=== PATIENT | male | born 1965 | race Caucasian/White ===

== ENCOUNTER 2025-01-16 06:13 | Observation (INO) | payer OTHER, SELFPAY ==
[2025-01-15 23:26] VITALS: BMI 29.2
[2025-01-15 23:27] VITALS: BP 129/78
[2025-01-15 23:40] LABS: % Basophils 0.6 % (0-2); % Eosinophils 3.5 % (0-6); % Immature Granulocytes 0.6 % (0-0.5); % Lymphocytes 27.1 % (20.5-51.1); % Monocytes 6.8 % (1.7-9.3); % Neutrophils 61.4 % (42.2-75.2); Absolute Basophils 0.1 10^3/uL (0-0.2); Absolute Eosinophils 0.4 10^3/uL (0-0.7); Absolute Immature Granulocytes 0.1 10^3/uL (0-0.05); Absolute Monocytes 0.8 10^3/uL (0.1-0.6); Absolute Neutrophils 6.7 10^3/uL (1.4-6.5); Hematocrit 39.5 % (39.0-52.0); Hemoglobin 13.8 g/dL (13.0-18.0); Mean Corp Hgb Conc. 34.9 g/dL (33.0-37.0); Mean Corpuscular Hgb 29.7 pg (27.0-31.0); Mean Corpuscular Volume 85.1 fL (80.0-94.0); Mean Platelet Volume 9.8 fL (7.4-10.4); Nucleated Red Blood Cells % 0 % (-); Platelet Count 212 10^3/uL (130-400); Red Blood Cell Count 4.64 10^6/uL (4.70-6.10); Red Cell Dist. Width 12.2 % (11.5-14.5)
[2025-01-16] VITALS (12 sets, daily range): BP systolic 100–143; BP diastolic 64–92; PULSE 71–85; BMI 28.0
[2025-01-16 00:02] LABS: ALT (SGPT) 28 U/L (0-50); AST (SGOT) 27 U/L (17-59); Albumin 4.3 g/dl (3.5-5.0); Alkaline Phosphatase 68 U/L (38-126); Blood Urea Nitrogen 22 mg/dl (9-20); Calcium 9.1 mg/dl (8.4-10.2); Carbon Dioxide 22 mmol/L (22-30); Chloride 107 mmol/L (98-107); Estimated Creatinine Clearance 93 ml/min; Glucose 140 mg/dl (70-99); Potassium 3.7 mmol/L (3.5-5.1); Sodium 139 mmol/L (135-145); Total Bilirubin 0.5 mg/dl (0.2-1.3); Total Protein 6.5 g/dl (6.3-8.2); eGFR > 60.00
--- NOTE | 2025-01-16 00:52 | ED.GENMED ---
History of Present Illness
General
Chief Complaint: Dizziness
Source: patient
Exam Limitations: none
Time Seen by Provider: 01/16/25 00:50
Nursing documentation reviewed up to this point in time: agreed with
History of Present Illness
History of Present Illness:
59-year-old male with a past medical history of hypertension presents emergency department today with concerns of sudden onset of dizziness and diaphoresis. Patient reports that this started when he was driving his car on a local road. Patient
reports that he had to anchor tack puller on the road because of the severity of the symptoms. Patient reports that he had a lot of blurry vision at the time and felt like the room was spinning. This happened to him once before in the past but only lasted
a few minutes. Patient pulled over and called his daughter for assistance. He did have 2 episodes of vomiting at home and currently notes persistent nausea. He denies headaches or neck pain. He denies chest pain or difficulty breathing. He
reports that it got so severe that he is unable to walk or move because of the symptoms. He denies double vision. He denies any dysarthria, dysphagia. Daughter denies any confusion or changes in mentation. Patient denies any paresthesias in his
upper or lower extremities. He does not smoke.
Review of Systems
Review of Systems
All Other Systems: ROS reviewed and negative except as documented in HPI and ROS
Phy Exam
Physical Exam
Physical Exam:
General: Patient is non-toxic appearing
Skin: Warm and dry, no rashes or lesions
Head: Normocephalic, atraumatic
Eyes: Sclera non-icteric. EOMs intact. Left beating horizontal nystagmus with lateral gauze.
Cardiac: Regular rate and rhythm, no murmurs
Peripheral Vascular: No lower extremity swelling or edema
Pulm: Normal respiratory effort , no wheezes, rales, or rhonchi
Abdomen: No abdominal tenderness to palpation
Neuro: CN II-XII intact, 5/5 strength in bilateral upper and lower extremities. Sensation intact.
Unable to sit up or ambulate due to degree of dizziness.
Psychiatric: Appropriate mood and affect.
Course
Orders/Labs/Results
Orders:
Orders
01/15/25 23:23
Electrocardiogram (*1) Urgent
Reason for Study: Vertigo / Dizzy
EKG- Treatment ONCE
01/15/25 23:31
CMP [Comprehensive Metabolic Panel] Urgent
Complete Blood Count/With Diff Urgent
01/16/25 01:05
0.9% Sodium Chloride 500 ml [Nss] 500 ml IV BOLUS
Diphenhydramine [Benadryl] 12.5 mg IV NOW STA
Meclizine [Antivert] 25 mg PO NOW STA
Ondansetron Injectable [Zofran] 4 mg IV NOW STA
01/16/25 01:06
CT Head W/o Iv Contrast Urgent
Comment:
Reason For Exam: dizziness
01/16/25 05:00
Flush (0.9% Sodium Chloride) [Flush (Nss)] See Dose Instructions IV PER PROTOCOL
01/16/25 05:55
Admit/Transfer Patient As Directed
Co-Sign Provider:
Level of Care: Observation services
Assign to:: Telemetry
Physician / Group: Uvaldo
Diagnosis: Dizziness / Vertigo
Reason for Telemetry: CVA/TIA
Date to Stop Telemetry: 01/19/25
Time to Stop Telemetry: 11:00
Code Status As Directed
Resuscitation Status: Full Code
PRN Pain Medication Management As Directed
May give lesser potent ordered pain med per pt: Yes
preference::
Protocol:: Medication orders for pain may be administered in a
manner that supports deferring to patient preference
when the pt is:
- Requesting an ordered lesser potent pain medication.
Least to most potent pain medications are defined
as: acetaminophen < NSAID < tramadol < opioids
(morphine, oxycodone, hydromorphone).
- Requesting a lesser dose of the same medication IF
ORDERED.
- Requesting a less intrusive route of administration
if both routes are prescribed by the provider (PO <
IV).
01/19/25 11:00
DC Protocol for Telemetry ONCE
Abnormal Lab Results
01/15/25
23:31
WBC 11.0 H 10^3/uL
(4.8-10.8)
RBC 4.64 L 10^6/uL
(4.70-6.10)
Abs Immat Gran (auto) 0.1 H 10^3/uL
(0-0.05)
Absolute Neuts (auto) 6.7 H 10^3/uL
(1.4-6.5)
Absolute Monos (auto) 0.8 H 10^3/uL
(0.1-0.6)
Immature Gran % 0.6 H %
(0-0.5)
BUN 22 H mg/dl
(9-20)
Glucose 140 H mg/dl
(70-99)
01/15/25 23:31
01/15/25 23:31
Vital Signs
Initial and Last Documented VS:
Initial Vital Signs
Temp Pulse Resp BP Pulse Ox
97.8 F 70 18 129/78 96
01/15/25 23:27 01/15/25 23:27 01/15/25 23:27 01/15/25 23:27 01/15/25 23:27
Last Documented Vital Signs
Temp Pulse Resp BP Pulse Ox
97.8 F 76 18 120/78 95
01/15/25 23:27 01/16/25 04:45 01/15/25 23:27 01/16/25 02:00 01/16/25 04:45
MDM/Problems Addressed
Differential Diagnosis Includes:
ddx include BPPV, vestibular neuritis, posterior CVA, dysrhythmia, electrolyte derangement, symptomatic anemia, brain tumor
MDM/Problems Addressed:
59-year-old male with a past medical history of hypertension presents emergency department today with concerns of sudden onset of dizziness and diaphoresis. This started while driving. He called his daughter for further assistance. They called
EMS. Patient has not been able to walk since his symptoms started. He is barely able to tolerate position changes. On physical exam he appears uncomfortable but is nontoxic. He does have left beating horizontal nystag with lateral gaze.mus his
sensations intact. He has 5 out of 5 strength. Initially unable to move at all due to his symptoms, he was given meclizine, Benadryl, and Zofran and IV fluids. After this, he does note slight improvement with his symptoms however when I got him
up to walk, he was unable to walk without leaning to his right side and nearly falling and unable to walk without assistance. Will admit for further workup and symptomatic management
*Pulse Oximetry
Patient hypoxic: no
*Critical Care Note
Total Time (30-74mins, 75-104mins- exclusive of procedures): Not Applicable
Update Note
Update Note:
3:10 am--update, on reassessment, patient notes a mild improvement of his symptoms, he is now able to sit up and stand up however with ambulation, he is unable to ambulate unassisted has right leaning gait and nearly falls with ambulation
ED Attending Note
-
Portions of this chart may have been created with voice recognition software.� Occasional wrong word or��sound alike� substitutions may have occurred due to the inherent limitations of voice recognition software.
Discharge Plan
Departure
Patient Disposition: Admit
Date of Disposition: 01/16/25
Time of Disposition: 04:04
Admit to: Med/Surg
Presentation/result/management discussed w/ accepting MD/DO: Hospitalist
Patient with high blood pressure during this ER visit?: No
Condition: Fair
Discharge Problem:
Dizziness, Gait disturbance
Interventions
Interventions:
*Risk Screen - Suicide Last Done: 01/15/25 23:33
*General Assessment Last Done: 01/15/25 23:33
*Neglect/Abuse Screening Last Done: 01/15/25 23:33
*ED- Fall Risk Assessment Last Done: 01/15/25 23:33
*ED COVID-19 Vaccine History Last Done: 01/15/25 23:33
ED- Neurological Assessment Last Done: 01/15/25 23:38
ED- Cardiac Assessment Last Done: 01/15/25 23:38
ED Swallowing Screen Last Done: 01/16/25 01:51
[2025-01-16] MEDS: NSS 500 IV (01:40)
[2025-01-16] MEDS: ANTIVERT 25 MG PO ×3 (01:42→19:22)
[2025-01-16] MEDS: BENADRYL 12.5 MG IV (01:44)
[2025-01-16] MEDS: ZOFRAN 4 MG IV (01:44)
--- NOTE | 2025-01-16 06:31 | HPS.HSE ---
Family Physician
-
Family Physician: Geetha Bauer
Chief Complaint
-
Dizziness
History of Present Illness
Patient is a 59y M with PMH significant for hypertension and diverticular disease who presents to ED complaining of dizziness / vision changes. Patient states that he was feeling well for most of the day. He was driving home this evening when
he began to feel that the cars around him were too close. He then noted that everything appeared to be very close to him. He was able to lime puller safely and stop his vehicle. He noted lightheaded / dizzy sensation. He had nausea with dry
heaves. He called his daughter and notes that he had difficulty seeing / operating his phone. When she arrived she called 911 and patient was brought to the ED for evaluation.
Patient received meclizine here in the ED and notes that his symptoms have improved. He does not yet appear at baseline but feels much better than arrival.
He denies any prior history of similar symptoms.
Medical History
Past Medical History
Past Medical History: Reports Other
Additional Past Medical History:
Hypertension
Diverticular Disease
Past Surgical History: Reports Other
Additional Past Surgical History:
Partial Colectomy / Colostomy
Colostomy Reversal
Hernia Repair
Social History
Tobacco: Former Smoker (Quit smoking at 30yo. Approx 10 pack years total use.)
Alcohol: Daily (1-2 drinks daily.)
Drug: None
Family History
Family History: Adopted
Allergies / Home Medications
Allergies reflects when Allergies were last updated in [employer].
Home Medications with original date entered in [employer]
Allergy/Medication List:
Allergies
Allergy/AdvReac Type Severity Reaction Status Date / Time
No Known Allergies Allergy Verified 01/15/25 23:25
Home Medications
lisinopril 10 mg-hydrochlorothiazide 12.5 mg tablet 1 tab PO DAILY 01/16/25
Review of Systems
-
History Source: Patient
A 12 point ROS was completed and negative except as noted: Yes
Constitutional: Denies Fever or Chills
Respiratory: Denies Cough or Trouble Breathing
Cardiac: Denies Chest Pain or Palpitations
Abdomen/GI: Reports Nausea; Denies Abdominal Pain, Vomiting or Diarrhea
: Denies Dysuria or Frequency
Musculoskeletal: Denies Joint Pain or Edema
Neurological: Reports Dizzy; Denies Headache, Weakness or Numbness
Psych: Denies Depression or Anxiety
Physical Exam
Vital Signs
Vital Signs
Temp Pulse Resp BP Pulse Ox
97.8 F 76 18 120/78 95
01/15/25 23:27 01/16/25 04:45 01/15/25 23:27 01/16/25 02:00 01/16/25 04:45
Physical Exam
General: Other (59y M in no acute distress.)
HEENT: Moist mucous membranes, PERRLA and Other (Pos L beating nystagmus.)
Respiratory: Clear; No Wheezes, Rales or Rhonchi
Cardiac: S1/S2 and Regular Rhythm; No Murmur
GI: Soft, Non Tender, Non Distended and Normal Bowel Sounds
Musculoskeletal: No Clubbing, No Cyanosis and No Edema
Neuro: AO x 3 and Nonfocal/grossly intact
Laboratory Results
-
01/15/25 23:31
01/15/25 23:31
Laboratory Results
Total Bilirubin 0.5 mg/dl (0.2-1.3) 01/15/25 23:31
AST 27 U/L (17-59) 01/15/25 23:31
ALT 28 U/L (0-50) 01/15/25 23:31
Alkaline Phosphatase 68 U/L (38-126) 01/15/25 23:31
Impression/Plan
-
A/P: Patient is a 59y M with PMH significant for hypertension who presents to ED complaining of dizziness and vision changes.
Vertigo / Dizziness
- Observe overnight for further evaluation and treatment.
- ? BPPV v CVA.
- Continue supportive care, IVFs, Meclizine PRN, etc.
- PT / Vestibular therapy eval.
- MRI brain in AM.
- Follow for any new / recurrent symptoms.
Benign Hypertension
- Stable. Continue current medication and adjust if needed.
DVT Prophylaxis: SCDs
Code Status: Full
[2025-01-16] MEDS: NSS 1000 IV ×2 (10:14→21:47)
[2025-01-16] MEDS: ZESTRIL 10 MG PO (10:27)
[2025-01-16] MEDS: ORETIC 12.5 MG PO (10:27)
--- NOTE | 2025-01-16 11:10 | W.PN.HOSP.TC ---
Today's Communication/Plan
-
MRI of the brain
Assessment / Plan
Assessment / Plan
Physical exam:
General: Well Developed, Well Nourished and No Apparent Distress
HEENT: Normocephalic, Atraumatic and Moist Mucous Membranes
Respiratory: Clear to Auscultation; Negative Wheezes, Rales or Rhonchi
Cardiac: Regular Rhythm and S1/S2
GI: Soft, Nontender and Nondistended
Musculoskeletal: No Clubbing, No Cyanosis and No Edema
Neuro: Awake, Alert and Oriented, no neurological deficits today. Horizontal nystagmus present
Psych: Calm
A/P:
Vertigo / Dizziness
- Observe overnight for further evaluation and treatment.
- ? BPPV v CVA.
- Continue supportive care, IVFs, Meclizine PRN, etc.
- PT / Vestibular therapy eval.
- MRI brain pending
- Follow for any new / recurrent symptoms.
Benign Hypertension
- Stable. Continue current medication and adjust if needed.
DVT Prophylaxis: SCDs
Code Status: Full
Anticipated Discharge: Within 24 hours
Subjective/Interval History
-
Date of Service: January 16, 2025
Patient feels much better this morning. No focal weakness or slurred speech.
Objective Data
-
Labs:
Laboratory Results
01/15/25
23:31
WBC 11.0 H
Hgb 13.8
Hct 39.5
Plt Count 212
Sodium 139
Potassium 3.7
Chloride 107
Carbon Dioxide 22
BUN 22 H
Creatinine 0.8
Glucose 140 H
Calcium 9.1
Total Bilirubin 0.5
AST 27
ALT 28
Alkaline Phosphatase 68
Vital Signs:
Vital Signs
Temp Pulse Resp BP Pulse Ox
97.6 F 74 16 118/77 97
01/16/25 09:30 01/16/25 09:30 01/16/25 09:30 01/16/25 09:30 01/16/25 09:30
[2025-01-16] MEDS: TYLENOL 650 MG PO (17:02)
[2025-01-17 03:00] VITALS: BP 103/60
[2025-01-17 06:00] VITALS: BMI 27.8
[2025-01-17 07:12] VITALS: BP 115/72
[2025-01-17 07:20] VITALS: BP 115/72; BP 121/78; BP 127/80; PULSE 61; PULSE 74; PULSE 76
--- NOTE | 2025-01-17 07:21 | W.PN.HOSP.TC ---
Today's Communication/Plan
-
Brain MRI today. Discharge planning
Assessment / Plan
Assessment / Plan
Physical exam:
General: Well Developed, Well Nourished and No Apparent Distress
HEENT: Normocephalic, Atraumatic and Moist Mucous Membranes
Respiratory: Clear to Auscultation; Negative Wheezes, Rales or Rhonchi
Cardiac: Regular Rhythm and S1/S2
GI: Soft, Nontender and Nondistended
Musculoskeletal: No Clubbing, No Cyanosis and No Edema
Neuro: Awake, Alert and Oriented, no neurological deficits today. Horizontal nystagmus present
Psych: Calm
A/P:
Vertigo / Dizziness
- Observe overnight for further evaluation and treatment.
- ? BPPV v CVA.
- Continue supportive care, IVFs, Meclizine PRN, etc.
- PT / Vestibular therapy eval.
- MRI brain pending
- Follow for any new / recurrent symptoms.
Benign Hypertension
- Stable. Continue current medication and adjust if needed.
DVT Prophylaxis: SCDs
Code Status: Full
Anticipated Discharge: Today
Subjective/Interval History
-
Date of Service: January 17, 2025
Patient feels better overall. Still some dizziness but much less.
Objective Data
-
Labs:
Laboratory Results
01/17/25
06:39
WBC Pending
Hgb Pending
Hct Pending
Plt Count Pending
Sodium Pending
Potassium Pending
Chloride Pending
Carbon Dioxide Pending
BUN Pending
Creatinine Pending
Glucose Pending
Calcium Pending
Vital Signs:
Vital Signs
Temp Pulse Resp BP Pulse Ox
98 F 57 18 103/60 99
01/17/25 03:00 01/17/25 03:00 01/17/25 03:00 01/17/25 03:00 01/17/25 03:00
I&O
01/16/25 01/17/25 01/18/25
06:59 06:59 06:59
Intake Total 2300 / 2300
Balance 2300 / 2300
[2025-01-17 07:32] LABS: Hematocrit 39.2 % (39.0-52.0); Hemoglobin 13.4 g/dL (13.0-18.0); Mean Corp Hgb Conc. 34.2 g/dL (33.0-37.0); Mean Corpuscular Hgb 29.8 pg (27.0-31.0); Mean Corpuscular Volume 87.3 fL (80.0-94.0); Mean Platelet Volume 10.3 fL (7.4-10.4); Platelet Count 209 10^3/uL (130-400); Red Blood Cell Count 4.49 10^6/uL (4.70-6.10); Red Cell Dist. Width 12.5 % (11.5-14.5); White Blood Cell Count 6.1 10^3/uL (4.8-10.8)
[2025-01-17] MEDS: ORETIC 12.5 MG PO (07:53)
[2025-01-17] MEDS: ANTIVERT 25 MG PO (07:57)
[2025-01-17] MEDS: ZESTRIL 10 MG PO (08:07)
[2025-01-17 08:14] LABS: Blood Urea Nitrogen 15 mg/dl (9-20); Calcium 8.9 mg/dl (8.4-10.2); Carbon Dioxide 27 mmol/L (22-30); Chloride 108 mmol/L (98-107); Estimated Creatinine Clearance 93 ml/min; Glucose 87 mg/dl (70-99); HDL Cholesterol 43 mg/dl; LDL Cholesterol, Calculated 112 mg/dl; Potassium 4.2 mmol/L (3.5-5.1); Sodium 140 mmol/L (135-145); Total Cholesterol 179 mg/dl (50-199); Triglyceride 120 mg/dl (10-149); Very Low Density Lipoprotein 24 mg/dl (0-30); eGFR > 60.00
[2025-01-17 10:22] VITALS: BP 120/75; PULSE 78
--- NOTE | 2025-01-17 11:04 | W.DCSUMMARY ---
Discharge Summary
Discharge Data
Date of Admission: 01/16/25
Date of Discharge: 01/17/25
-
Pending Results: No
Hospital Course
Patient 59 years old male with history of hypertension presented to the hospital with dizziness. His symptoms were more likely related to vertigo. He had MRI of the brain unremarkable for acute finding. Patient did well symptomatically and he is
eager to go home today. He will be discharged in stable condition today.
Discharge Plan
-
Patient Disposition: Home (Routine Discharge)
Discharge Diagnosis/Procedures: Probably benign paroxysmal positional vertigo. Hypertension.
Diet: Low Cholesterol
Activity: As tolerated
Blood Work: Please PCP to order CBC, BMP within 1
Referrals:
Geetha Bauer DO [Family Provider, Family Practice] - in less than 1 week
Prescriptions:
Continued
lisinopril-hydrochlorothiazide 10-12.5 mg Tablet
1 tab PO DAILY
Discharge Date and Time
Print Language: SAMOAN
[2025-01-17 11:33] VITALS: BP 134/77
--- NOTE | 2025-01-17 15:16 | CM ---
Patient for d/c today. Met w/ patient bedside, initial assessment completed. Patient is a 59y M with PMH significant for hypertension and diverticular disease who presents to ED complaining of dizziness / vision changes.
Patient resides w/ spouse and adult son in a 2[facility], 3 steps to enter. Patient is independent in all areas, no DME. No SNF/HC hx reported. Patient drives.
Address, point of contact and insurance verified
PCP: Geetha Bauer
Pharmacy: [facility]
Patient admitted obs. OOBS form verbally reviewed, copy provided, copy on chart
Spouse will transport home
Therapy assessed, rec OP therapy. Per patient, he was instructed if symptoms remain in the next week, to explore OP therapy. Patient stated he will follow up w/ his PCP if needed and get a script.
Plan: Home, no needs
== END 2025-01-17 15:58 | disposition home or self-care (01) ==
LOC: 4 EAST ACU 06:13
PROVIDERS: Student in an Organized Health Care Education/Training Program; ADMITTING PHYSICIAN Hospitalist; ATTENDING PHYSICIAN Hospitalist; EMERGENCY PHYSICIAN Student in an Organized Health Care Education/Training Program; FAMILY PHYSICIAN Family Medicine
DX: H81.10 Benign paroxysmal vertigo, unspecified ear (principal); R42 Dizziness and giddiness; Z87.891 Personal history of nicotine dependence; I10 Essential (primary) hypertension
CPT/HCPCS: 70450; 70551; 80048; 80053; 80061; 85025; 85027; 93005; 96374; 96375; 97112; 97162; 99285; G0378